=== PATIENT | male | born 1995 | race Hispanic/Latino ===

== ENCOUNTER → 2018-01-01 | Outpatient (CLI) | payer OTHER ==
--- NOTE | 2018-01-01 18:18 | Diagnostic Imaging Report ---
PROCEDURE:THORACIC SP 3V COMPARISON:None. INDICATIONS:BACK PAIN, BACK INJURY FINDINGS:Alignment of the vertebral bodies is maintained. The vertebral body heights are maintained. No osteolytic or osteoblastic lesion. No paravertebral abnormalities. CONCLUSION:No acute osseous abnormality. // Ken Borrego M.D. Dictated by: Ken Borrego M.D. on 01/01/2018 at 18:19 Electronically approved by: Ken Borrego M.D. on 01/01/2018 at 18:19
== END ==
LOC: RAD 16:17
PROVIDERS: ATTEND Internal Medicine
DX: S23.3XXA Sprain of ligaments of thoracic spine, initial encounter (principal)
CPT/HCPCS: 72072

== ENCOUNTER → 2020-04-22 | Outpatient (CLI) | payer OTHER ==
--- NOTE | 2020-04-22 08:51 | Diagnostic Imaging Report ---
Exam: Thoracic spine, 2 views History: Upper back pain Comparison: None. Findings: No acute, displaced fracture or subluxation. Vertebral alignment is within normal limits. Cervicothoracic junction is intact as visualized on the swimmer's view. Intervertebral disc spaces are well-maintained. Paraspinal soft tissues are within normal limits. Impression: No acute osseous abnormality. Signed by: Dr. Chava Patel M.D. on 04/22/2020 8:47 AM
--- NOTE | 2020-04-22 11:45 | Diagnostic Imaging Report ---
EXAMINATION: CT of the cervical spine without contrast. HISTORY: Severe neck pain for the last 4 years, worsening for last couple months COMPARISON: None available TECHNIQUE: Multidetector helical axial images were obtained without contrast from the foramen magnum to T1. The axial images were reconstructed and viewed in sagittal and coronal planes as well. Dose modulation, iterative reconstruction, and/or weight based adjustment of the mA/kV was utilized to reduce the radiation dose to as low as reasonably achievable. FINDINGS: Alignment: Mild straightening of the cervical lordosis which may be related to muscle spasm or positional. Soft tissues: Normal Vertebrae: Normal height and density. No acute fracture, infection or neoplasm Degenerative changes: No significant degenerative changes, no disc herniations, no spinal canal or foraminal stenoses. No evidence of neurocompression. IMPRESSION: No cervical spine abnormalities, particularly no spinal canal or foraminal stenosis is seen. Signed by: Dr. Karo Snyder M.D. on 04/22/2020 11:42 AM
== END ==
LOC: CT 08:07
PROVIDERS: ATTEND Emergency Medicine
DX: M54.2 Cervicalgia (principal); M54.6 Pain in thoracic spine
CPT/HCPCS: 72072; 72125